=== PATIENT | female | born 1975 ===

== ENCOUNTER 2019-02-20 13:17 | Outpatient (CLI) | payer OTHER | END 2019-02-20 13:26 | disposition home or self-care (01) | LOC: SONOGRAMA 13:17 → MAMO-SONO 13:45 | DX: R10.2 Pelvic and perineal pain (principal) ==

== ENCOUNTER → 2020-02-22 | Outpatient (CLI) | payer OTHER | END | disposition home or self-care (01) | LOC: MAMO-SONO 09:17 | PROVIDERS: ATTEND Obstetrics & Gynecology | DX: Z12.31 Encounter for screening mammogram for malignant neoplasm of breast (principal); N60.19 Diffuse cystic mastopathy of unspecified breast ==

== ENCOUNTER 2021-08-06 12:16 | Outpatient (CLI) | payer OTHER | END 2021-08-06 12:27 | disposition home or self-care (01) | LOC: SONOGRAMA 12:16 | PROVIDERS: ATTEND Obstetrics & Gynecology | DX: R10.2 Pelvic and perineal pain (principal) ==